=== PATIENT | male | born 1940 | race Caucasian/White ===

== ENCOUNTER 2018-12-20 18:30 | Inpatient (IN) | payer OTHER | END 2018-12-22 12:50 | disposition home or self-care (01) | LOC: ER 18:30 → TELE 21:28 → TELE-WESTW 23:02 | DX: K80.20 Calculus of gallbladder without cholecystitis without obstruction (principal); I48.91 Unspecified atrial fibrillation; N40.0 Benign prostatic hyperplasia without lower urinary tract symptoms ==